=== PATIENT | female | born 1945 | race Two or more races ===

== ENCOUNTER 2017-01-29 22:33 | Emergency (ER) | payer OTHER ==
--- NOTE | ~2017-01-29 | EKG ---
PATIENT: MEMO ESCOBAR UNIT #: [id number] Ventricular Rate: 86 BPM Atrial Rate: 86 BPM P-R Interval: 126 ms QRS Duration: 74 ms Q-T Interval: 384 ms QTC Calculation(Bezet): 459 ms P Dawn: 66 degrees Calculated R Dawn: 3 degrees Calculated T Dawn: 33 degrees Diagnosis Line: Normal sinus rhythm Diagnosis Line: Normal ECG Diagnosis Line: No previous ECGs available Diagnosis Line: Confirmed by GREGORIO RODRÍGUEZ MD ([id number]) on Diagnosis Line: 01/30/2017 1:59:55 PM INTERPRETING MD: ANAND
--- NOTE | ~2017-01-29 | CT71 ---
[facility] A Service of [facility] RADIOLOGY TEXT RESULTS PATIENT: MEMO ESCOBAR LOCATION: [place] : [birth year] UNIT #: [id number] AGE: [address]: Ronaldo Cortes MD SEX: F ORDER DR: [id number] [facility]. [place], [place] [address] [id number] E MR#: [id number] Acc #: [id number] NAME: MEMO ESCOBAR : 1945 SEX: F STUDY DATE/TIME: 01/30/2017 0:58 UNIT: [place] ROOM: STUDY DESCRIPTION: CT Head Wo Contrast Attending Physician: Ronaldo Cortes M.D. Ordering Physician: Ronaldo Cortes M.D. Primary Care Physician: No Primary Care Physician MEDICAL IMAGING REPORT This report is preliminary unless electronic signature is present EXAM CT head, noncontrast, 01/30/2017. HISTORY 71-year-old female in the ED complaining of headaches, dizziness, nausea and vomiting and blurred vision. Symptoms began earlier today. TECHNIQUE CT examination of the head without IV contrast. This CT exam was performed with one or more of the following radiation dose reduction techniques: automatic exposure control, adjustment of mA and/or kV according to patient size, and iterative reconstruction. FINDINGS The examination is negative. No evidence of intracranial hemorrhage, mass, mass effect, cerebral edema, hydrocephalus, or additional abnormality. IMPRESSION Negative head CT examination. Dictated by... Moody Malik M.D. THIS IS AN ELECTRONICALLY VERIFIED REPORT Moody Malik M.D. at 01/30/2017 9:53 PM RGW/bayw TD: 01/30/2017 12:28 JOB #: [id number] [facility] A Service [facility] RADIOLOGY TEXT RESULTS PATIENT: MEMO ESCOBAR LOCATION: [place] : [birth year] UNIT #: [id number] AGE: [address]: Ronaldo Cortes MD SEX: F ORDER DR: MEDICAL IMAGING REPORT Page 1 of 1 COPY
--- NOTE | ~2017-01-29 | CT52 ---
[facility] A Service of [facility] RADIOLOGY TEXT RESULTS PATIENT: MEMO ESCOBAR LOCATION: [facility] : [birth year] UNIT #: [id number] AGE: [address]: Ronaldo Cortes MD SEX: F ORDER DR: [id number] [facility]. [place], [place] [address] [id number] E MR#: [id number] Acc #: [id number] NAME: MEMO ESCOBAR : 1945 SEX: F STUDY DATE/TIME: 01/30/2017 1:01 UNIT: [facility] ROOM: STUDY DESCRIPTION: CT Cervical Spine Wo Cont Attending Physician: Ronaldo Cortes M.D. Ordering Physician: Ronaldo Cortes M.D. MEDICAL IMAGING REPORT This report is preliminary unless electronic signature is present EXAM CT cervical spine 01/30/2017 HISTORY 71-year-old female in the ED complaining of headache, neck pain, nausea and vomiting and blurred vision. Symptoms began earlier today. TECHNIQUE CT examination of the cervical spine was performed using thin-section axial images from the skull base through the upper portion of T3. Sagittal and coronal reconstruction images. This CT exam was performed with one or more of the following radiation dose reduction techniques: automatic exposure control, adjustment of mA and/or kV according to patient size, and iterative reconstruction. TECHNIQUE No acute or chronic fracture deformity or additional osseous lesion. Moderate degenerative disc space changes at C4-C5 and C5-C6. Mild bilateral degenerative facet arthropathy throughout the cervical spine, greatest on the left at C4-C5. Cervical vertebral alignment is normal. IMPRESSION 1. No fracture or other acute osseous abnormality. 2. Moderate degenerative disc disease at C4-C5 and C5-C6. Dictated by... Moody Malik M.D. THIS IS AN ELECTRONICALLY VERIFIED REPORT Moody Malik M.D. at 01/31/2017 6:01 AM [facility] A Service of [facility] RADIOLOGY TEXT RESULTS PATIENT: MEMO ESCOBAR LOCATION: [place] : [birth year] UNIT #: [id number] AGE: [address]: Ronaldo Cortes MD SEX: F ORDER DR: JEAN PAUL/rain TD: 01/30/2017 22:01 JOB #: [id number] MEDICAL IMAGING REPORT Page 1 of 1 COPY
[2017-01-29 23:54] LABS: BASOPHIL% 0.6 % (0-2.5); EOSINOPHIL# 0.1 X10e3 (0-0.7); EOSINOPHIL% 1.6 % (0.0-7.0); HEMATOCRIT 39.7 % (35.0-45.0); HEMOGLOBIN 13.6 gm/dL (12.0-16.0); LYMPHOCYTE# 2.9 X10e3 (1.0-3.5); LYMPHOCYTE% 39.4 % (17.0-45.0); MEAN CELL VOLUME 92.6 FL (83-96); MEAN CORPUSCULAR HEMOGLOBIN 31.7 PG (28-34); MEAN CORPUSCULAR HGB CONC 34.2 g/dL (30-36); MEAN PLATELET VOLUME 8.8 FL (6.5-11.5); MONOCYTE# 0.5 X10e3 (0-1.0); MONOCYTE% 6.6 % (3.0-12.0); NEUTROPHIL# 3.7 X10e3 (1.5-7.1); NEUTROPHIL% 51.8 % (40-75); PLATELET COUNT 226 X10e3 (140-420); RED BLOOD COUNT 4.29 X10e (3.90-5.30); RED CELL DISTRIBUTION WIDTH 12.9 % (11.0-15.5); WHITE BLOOD COUNT 7.2 X10e3 (4.0-10.5)
[2017-01-29 23:55] LABS: DIFF IND NO
[2017-01-30 00:03] LABS: POC - CKMB <1.0 ng/mL (0.0-7.9); POC - TROPONIN <0.05 ng/mL (<=0.05)
[2017-01-30 00:28] LABS: URINE SOURCE CLEAN CATCH
[2017-01-30 00:29] LABS: ALBUMIN SERUM 3.9 g/dL (3.5-5.0); BILIRUBIN, DIRECT 0.2 mg/dL (0.0-0.2); BILIRUBIN,INDIRECT 0.3 mg/dL (0.0-0.9); BILIRUBIN,TOTAL 0.5 mg/dL (0.2-2.0); BUN/CREATININE RATIO 26.66; CALCIUM SERUM 8.9 mg/dL (8.4-10.2); CREATININE SERUM 0.6 mg/dL (0.6-1.4); POTASSIUM 4.5 mmol/L (3.5-5.1); PROTEIN TOTAL SERUM 7.9 g/dL (6.0-8.3)
[2017-01-30 00:32] LABS: URINE APPEARANCE CLEAR; URINE BILIRUBIN NEG (NEG); URINE BLOOD NEG (NEG); URINE COLOR YELLOW; URINE GLUCOSE >1000 MG/DL (NEG); URINE KETONE NEG (NEG); URINE LEUKOCYTE ESTERASE TRACE (NEG); URINE NITRATE NEG (NEG); URINE PH 5.5 (5-8); URINE PROTEIN NEG (NEG); URINE SPECIFIC GRAVITY 1.016 (1.003-1.035); URINE UROBILINOGEN 0.2 MG/DL (NEG)
[2017-01-30 00:34] LABS: CULTURE INDICATED? YES; URBCS1 AUWI 0-2 /[HPF] (0-2); URINE BACTERIA AUWI NEG (NEGATIVE); URINE SQUAMOUS EPITHELIAL CELL NONE SEEN /[HPF]
[2017-01-30 02:04] LABS: POC - CKMB 1.6 ng/mL (0.0-7.9); POC - TROPONIN <0.05 ng/mL (<=0.05)
== END 2017-01-30 03:12 | disposition home or self-care (01) ==
LOC: CED 22:33
PROVIDERS: Emergency Medicine
DX: S16.1XXA Strain of muscle, fascia and tendon at neck level, initial encounter (principal); X58.XXXA Exposure to other specified factors, initial encounter; E11.65 Type 2 diabetes mellitus with hyperglycemia; Z79.4 Long term (current) use of insulin
CPT/HCPCS: 36415; 70450; 72125; 80048; 80076; 81003; 82553; 82947; 83690; 84484; 85025; 87086; 93005; 96361; 96374; 99284; J1885